=== PATIENT | female | born 2000 | race Caucasian/White ===

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

== ENCOUNTER → 2022-04-21 | Outpatient (CLI) | payer MEDICAID, SELFPAY ==
[2022-04-21 10:46] LABS: Absolute Lymphocyte Count 1.99 X10^3/uL (0.83-4.51); Absolute Neutrophil Count 10.1 X10^3/uL (2.0-7.7); Basophil# 0.04 X10^3/uL; Basophil% 0.3 % (0-1); Eosinophil# 0.07 X10^3/uL; Eosinophils% 0.5 % (0-5); Hematocrit 36.3 % (37-47); Hemoglobin 12.3 g/dL (12.0-15.0); Lymphocyte # 1.99 X10^3/ul (0.83-4.51); Lymphocyte % 15.2 % (19-41); Mean Corp Hgb Conc 33.9 g/dL (32-36); Mean Corpuscular Hgb 30.1 pg (27.0-32.0); Mean Corpuscular Volume 88.8 fL (81-99); Mean Platelet Vol. 11.2 fl (6.2-12.0); Monocyte# 0.72 X10^3/uL; Monocyte% 5.5 % (0-10); NRBC Flagged by Analyzer 0 % (0-5); Neutrophil % 77.1 % (47-70); Platelet Count 207 K/mm3 (150-450); RBC Distribution Width CV 13.3 % (11.6-14.6); RBC Distribution Width SD 43.3 fl (35.1-43.9); Red Blood Count 4.09 M/mm3 (4.2-5.4); White Blood Count 13.1 K/mm3 (4.4-11.0)
[2022-04-21 10:54] LABS: Glucose Challenge Gest 1H 50g 164 mg/dL (70-140)
== END | disposition home or self-care (01) ==
LOC: WOBLAB 08:58
PROVIDERS: Visit Provider Student in an Organized Health Care Education/Training Program
DX: Z34.83 Encounter for supervision of other normal pregnancy, third trimester (principal)
CPT/HCPCS: 36415; 82950; 85025; 86850

== ENCOUNTER → 2022-04-24 | Outpatient (CLI) | payer MEDICAID, SELFPAY ==
[2022-04-24 09:28] LABS: Glucose GTT-Gestation. Fasting 92 mg/dL (<105)
[2022-04-24 10:28] LABS: Glucose GTT-Gestational 1 Hr 147 mg/dL (<190)
[2022-04-24 12:22] LABS: Glucose GTT-Gestational 3 Hr 98 L (<145)
[2022-04-24 12:23] LABS: Glucose GTT-Gestational 2 Hr 152 mg/dL (<165)
== END | disposition home or self-care (01) ==
LOC: WOBLAB 08:38
PROVIDERS: Visit Provider Student in an Organized Health Care Education/Training Program
DX: O99.810 Abnormal glucose complicating pregnancy (principal); Z3A.00 Weeks of gestation of pregnancy not specified
CPT/HCPCS: 36415; 82951; 82952

== ENCOUNTER → 2022-06-16 | Outpatient (CLI) | payer MEDICAID, SELFPAY ==
[2022-06-16 13:19] LABS: Absolute Lymphocyte Count 3.15 X10^3/uL (0.83-4.51); Absolute Neutrophil Count 12.4 X10^3/uL (2.0-7.7); Basophil# 0.08 X10^3/uL; Basophil% 0.5 % (0-1); Eosinophil# 0.06 X10^3/uL; Eosinophils% 0.3 % (0-5); Hematocrit 36.2 % (37-47); Hemoglobin 12.3 g/dL (12.0-15.0); Lymphocyte # 3.15 X10^3/ul (0.83-4.51); Lymphocyte % 18.2 % (19-41); Mean Corpuscular Hgb 30.4 pg (27.0-32.0); Mean Corpuscular Volume 89.4 fL (81-99); Mean Platelet Vol. 11.1 fl (6.2-12.0); Monocyte# 1.16 X10^3/uL; Monocyte% 6.7 % (0-10); NRBC Flagged by Analyzer 0 % (0-5); Neutrophil # 12.41 X10^3/uL (2.7-7.7); Neutrophil % 71.7 % (47-70); Platelet Count 252 K/mm3 (150-450); RBC Distribution Width CV 13.5 % (11.6-14.6); RBC Distribution Width SD 44.5 fl (35.1-43.9); Red Blood Count 4.05 M/mm3 (4.2-5.4); White Blood Count 17.3 K/mm3 (4.4-11.0)
[2022-06-16 14:07] LABS: Syphilis Antibodies Non-reactive
== END | disposition home or self-care (01) ==
LOC: WOBLAB 11:52
PROVIDERS: Visit Provider Student in an Organized Health Care Education/Training Program
DX: Z34.83 Encounter for supervision of other normal pregnancy, third trimester (principal)
CPT/HCPCS: 36415; 85025; 86780; 87081

== ENCOUNTER 2022-07-13 06:57 | Inpatient (IN) | payer MEDICAID, SELFPAY ==
[2022-07-13] VITALS (38 sets, daily range): BP systolic 105–128; BP diastolic 55–81; PULSE 63–97; TEMP 36.2–36.8; O2SAT 91–99; BMI 29.2
--- NOTE | 2022-07-13 08:21 | PCM.HP.BLA ---
History and Physical Date of Admission: 07/13/22 Chief complaint: Induction of labor at term History present illness: 22-year-old G1, P0 at 40 weeks and 3 days with RUMA 07/10/2022 arrives for induction of labor at term. Denies headache, vision changes, chest pain, shortness of breath, nausea, right upper quadrant pain. Patient states good movement. is complicated by BMI 29, Rh- Obstetric history: G1: Current Past medical history: None Medications: vitamin Allergies: No known drug allergies Past surgical history: None Family history: Denies history DVT or PE Social history: Former smoker, alcohol use, drug use Review of systems: Besides above pertinent positive for review of systems was performed and found to be negative Physical exam: Vitals: Blood pressure 107/64 pulse 88 temperature 98.2 ?F General: Normal-appearing no acute distress HEENT: Normocephalic/atraumatic no cervical lymphadenopathy Cardiac/respiratory: No use accessory muscles, nonlabored breathing Abdomen: Soft, nontender, gravid Extremities: No peripheral edema normal peripheral pulses Psych: Normal affect and demeanor nonpressured speech Labs: Pending Assessment and plan: 22-year-old at 40 weeks and 3 days arrives for induction of labor at term Admit labor and delivery CEFM GBS negative Cytotec induction 25 mcg vaginally every 4 per protocol Routine orders Anesthesia to see
[2022-07-13 08:45] LABS: Absolute Neutrophil Count 12.4 X10^3/uL (2.0-7.7); Basophil# 0.07 X10^3/uL; Basophil% 0.4 % (0-1); Eosinophils% 0.6 % (0-5); Hematocrit 38.3 % (37-47); Hemoglobin 12.8 g/dL (12.0-15.0); Lymphocyte % 19.8 % (19-41); Mean Corp Hgb Conc 33.4 g/dL (32-36); Mean Corpuscular Hgb 29.3 pg (27.0-32.0); Mean Corpuscular Volume 87.6 fL (81-99); Mean Platelet Vol. 10.6 fl (6.2-12.0); Monocyte# 0.87 X10^3/uL; Monocyte% 5.1 % (0-10); NRBC Flagged by Analyzer 0 % (0-5); Neutrophil # 12.44 X10^3/uL (2.7-7.7); Neutrophil % 72.3 % (47-70); Platelet Count 267 K/mm3 (150-450); RBC Distribution Width CV 13.8 % (11.6-14.6); RBC Distribution Width SD 43.9 fl (35.1-43.9); Red Blood Count 4.37 M/mm3 (4.2-5.4); White Blood Count 17.2 K/mm3 (4.4-11.0)
[2022-07-13 09:40] LABS: Syphilis Antibodies Non-reactive
[2022-07-13] MEDS: miSOPROStol 25 MCG TABLET VAGINAL (09:43)
[2022-07-13] MEDS: 0.9% Saline Lock 10 ML Syringe IV (09:43)
[2022-07-13] MEDS: Lactated Ringers 1,000 ML 50 ML IV (14:05)
[2022-07-13] MEDS: Oxytocin 15 Units/NS 250ml 15 UNITS/250 ML IV.SOLN 2 UNITS IV (14:10)
--- NOTE | 2022-07-13 16:31 | PN.OBGYN_ITS ---
Subjective Subjective No complaints feels minor contractions Objective Data Objective Data Vital Signs: Vital Signs Temp Pulse BP Pulse Ox 97.2 F L 71 124/57 H 97 07/13/22 16:19 07/13/22 16:20 07/13/22 16:20 07/13/22 16:20 Weight: 150 lb Body Mass Index (BMI) 29.2 Intake & Output: Intake and Output for Last 24 Hours 07/11/22 07/12/22 07/13/22 23:59 23:59 23:59 Intake Total 2.03 / 2.03 Balance 2.03 / 2.03 Lab / Micro Data Result Diagrams: 07/13/22 08:30 Labs: Laboratory Results - last 24 hr 07/13/22 08:30: WBC 17.2 H, RBC 4.37, Hgb 12.8, Hct 38.3, MCV 87.6, MCH 29.3, MCHC 33.4, RDW Std Deviation 43.9, RDW Coeff of Tino 13.8, Plt Count 267, MPV 10.6, Immature Gran % (Auto) 1.800 H, Neut % (Auto) 72.3 H, Lymph % (Auto) 19.8, [place] % (Auto) 5.1, Eos % (Auto) 0.6, Baso % (Auto) 0.4, Absolute Neuts (auto) 12.4 H, Absolute Lymphs (auto) 3.40, Nucleated RBC % 0 07/13/22 08:30: Blood Type A NEGATIVE, Antibody Screen NEGATIVE 07/13/22 08:30: Syphilis Total Ab Non-reactive Physical Exam Const alert, oriented x3, no apparent distress, average body habitus, healthy appearing and well nourished HEENT normocephalic and moist oral mucous membranes Eyes PERRL Neck full ROM Resp normal respiratory effort and no retractions Extremity normal to inspection and full ROM Neuro moves all extremities and no focal motor deficits Psych mental status grossly normal, affect normal, speech normal and activity/motor b ehavior normal Assessment & Plan (1) : PLAN: Patient seen and examined. Mild discomfort with contractions. Called by nursing earlier today with contractions every 2 minutes and cervical dilation 2 cm. Switch to Pitocin. Educated patient on plan for induction and discussed possible AROM in the future. Patient states understanding
[2022-07-13] MEDS: LACTATED RINGERS 500 ML 999 ML IV (19:15)
[2022-07-13] MEDS: fentaNYL-bupivacaine (epidural) 100 ML BAG EPIDURAL (19:47)
[2022-07-13] MEDS: Ondansetron 4 MG/2 ML Vial IV (21:31)
[2022-07-14] VITALS (43 sets, daily range): BP systolic 99–138; BP diastolic 48–69; PULSE 61–115; RESP 16–18; TEMP 36.5–37.3; O2SAT 88–99
[2022-07-14] MEDS: fentaNYL-bupivacaine (epidural) 100 ML BAG EPIDURAL ×4 (00:01→13:59)
[2022-07-14] MEDS: Lactated Ringers 1,000 ML 200 ML IV ×3 (01:40→12:14)
--- NOTE | 2022-07-14 10:25 | PN.OBGYN_ITS ---
Subjective Subjective Patient comfortable with epidural, no complaints Objective Data Objective Data Vital Signs: Vital Signs Temp Pulse BP Pulse Ox 98.2 F 72 125/58 H 98 07/14/22 10:12 07/14/22 10:12 07/14/22 10:12 07/14/22 09:00 Weight: 150 lb Body Mass Index (BMI) 29.2 Intake & Output: Intake and Output for Last 24 Hours 07/12/22 07/13/22 07/14/22 23:59 23:59 23:59 Intake Total 880.20 / 880.20 1761.93 / 1761.93 Output Total 300 / 300 Balance 580.20 / 580.20 1761.93 / 1761.93 Lab / Micro Data Result Diagrams: 07/13/22 08:30 Physical Exam Const alert, oriented x3, no apparent distress, average body habitus, healthy appearing and well nourished HEENT normocephalic and moist oral mucous membranes Eyes PERRL Neck full ROM Resp normal respiratory effort, no retractions and no use of accessory muscles GI GI Narrative: Soft, nontender, gravid Narrative: Cervical exam: 5-6/70/-3. AROM thin meconium Psych mental status grossly normal, affect normal, speech normal and activity/motor behavior normal Assessment & Plan (1) : PLAN: Patient seen and examined now comfortable with epidural. Educated patient on AROM wrist benefits alternatives, patient states understanding wish to proceed. AROM thin meconium, educated patient on meconium and plan for delivery and internet marketing consultant, discussed risks of meconium aspiration. Patient and family states understanding all questions answered. We will continue to titrate Pitocin
[2022-07-14] MEDS: LACTATED RINGERS 500 ML 999 ML IV (11:13)
[2022-07-14] MEDS: Oxytocin 15 Units/NS 250ml 15 UNITS/250 ML IV.SOLN 20 UNITS IV (12:04)
[2022-07-14] MEDS: Methylergonovine 0.2 MG/ML Ampul IM (14:28)
[2022-07-14] MEDS: Ondansetron 4 MG/2 ML Vial IV (15:05)
--- NOTE | 2022-07-14 15:11 | OP.PCM_ITS ---
Maternal Data Information Final RUMA: 07/10/22 Vaginal Delivery Operative Information Date of Procedure: 07/14/22 Pre-Operative Diagnosis: March intrauterine at term Post-Operative Diagnosis: March intrauterine at term Surgery / Procedure Performed: Spontaneous Vaginal Delivery Type of Anesthesia: Epidural Estimated Blood Loss: 700cc Findings Description of Procedure: Spontaneous vaginal delivery of viable female. Nuchal cord x1, loose, delivered through. Baby to mom. Cord clamped and cut. Spontaneous delivery of placenta. Second-degree laceration and bilateral labial lacerations repaired in the usual fashion, hemostatic. Patient received Methergine IM x1. Uterus firm and lower uterine segment cleared of all clots. Chemical Etch Operator present at delivery for light meconium fluid. A Gender: Female (1 minute): 8 (5 minute): 9 Complication Complications: None
[2022-07-14] MEDS: Ibuprofen 600 MG Tablet PO (15:33)
[2022-07-14] MEDS: Oxytocin 15 Units/NS 250ml 15 UNITS/250 ML IV.SOLN 83 UNITS IV (15:43)
[2022-07-15] MEDS: Acetaminophen 500 MG Tablet 1000 MG PO ×2 (00:36→12:43)
[2022-07-15 04:48] VITALS: BP 110/53; PULSE 79; RESP 16; TEMP 36.7
[2022-07-15 05:14] LABS: Hematocrit 29.7 % (37-47); Mean Corp Hgb Conc 33.7 g/dL (32-36); Mean Corpuscular Hgb 29.7 pg (27.0-32.0); Mean Corpuscular Volume 88.1 fL (81-99); Mean Platelet Vol. 10.9 fl (6.2-12.0); Platelet Count 244 K/mm3 (150-450); RBC Distribution Width CV 13.5 % (11.6-14.6); RBC Distribution Width SD 43.5 fl (35.1-43.9); Red Blood Count 3.37 M/mm3 (4.2-5.4); White Blood Count 26.7 K/mm3 (4.4-11.0)
[2022-07-15] MEDS: Ibuprofen 600 MG Tablet PO (06:00)
[2022-07-15 09:00] VITALS: BP 123/64; PULSE 90; RESP 16; TEMP 36.6; O2SAT 98
[2022-07-15 09:16] VITALS: BP 123/64; PULSE 90
--- NOTE | 2022-07-15 10:11 | DS.PCM_ITS ---
Discharge Summary Date of Admission: 07/13/22 Date of Discharge: 07/15/22 Summary: Patient arrived on 07/13/2022 for induction of labor at term. Subsequently delivered on 07/14/2022 vaginally. Routine recovery. Discharged home on 07/15/2022 Meaningful Use Info Meaningful Use Diagnoses (Choose all that apply): None applicable Discharge Plan Admission Admit Date/Time: 07/13/22 06:57 Primary Reason for Your Visit: Induction of labor Attending Provider: Laina David Instructions Additional Instructions / Restrictions: Regular diet. Weightbearing as tolerated. Okay to shower. No intercourse for 4 to 6 weeks. Call if fevers, chills, chest pain, shortness of breath. Follow- up 4 to 6 weeks Discharge Orders/Prescriptions Prescriptions: No Action Prena1 True 30 mg iron- 1.4 mg-300 mg Combo Pack 1 pkg PO DAILY Disposition Disposition (needs filled in before D/C Order can be placed): Home, Self Care
--- NOTE | 2022-07-15 10:12 | PCM.PN.OB ---
Subjective Subjective No overnight complaints Objective Data Objective Data Vital Signs: Vital Signs Temp Pulse Resp BP Pulse Ox O2 Del Method 97.8 F 90 16 123/64 H 98 Room Air 07/15/22 09:00 07/15/22 09:16 07/15/22 09:00 07/15/22 09:16 07/15/22 09:00 07/15/22 09:00 Oxygen Delivery Method Room Air Weight: 150 lb Body Mass Index (BMI) 29.2 Intake & Output: Intake and Output for Last 24 Hours 07/13/22 07/14/22 07/15/22 23:59 23:59 23:59 Intake Total 880.20 / 880.20 4779.80 / 4779.80 Output Total 300 / 300 1300 / 1300 Balance 580.20 / 580.20 3479.80 / 3479.80 Lab / Micro Data Result Diagrams: 07/15/22 05:05 Labs: Laboratory Results - last 24 hr 07/14/22 19:25: Screen NEGATIVE, Baby's Blood Type A POSITIVE, Baby's JUANJO NEGATIVE 07/15/22 05:05: WBC 26.7 H, RBC 3.37 L, Hgb 10.0 L, Hct 29.7 L, MCV 88.1, MCH 29.7, MCHC 33.7, RDW Std Deviation 43.5, RDW Coeff of Tino 13.5, Plt Count 244, MPV 10.9 Physical Exam Const alert, oriented x3, no apparent distress, average body habitus, healthy appearing and well nourished HEENT normocephalic and moist oral mucous membranes Eyes PERRL Neck full ROM Resp normal respiratory effort, no retractions and no use of accessory muscles GI GI Narrative: Soft, nontender, uterus firm and below umbilicus Extremity normal to inspection and full ROM Neuro moves all extremities and no focal motor deficits Psych mental status grossly normal, affect normal, speech normal and activity/motor behavior normal Assessment & Plan (1) Vaginal delivery: PLAN: day 1. Formula feeding. Pain well controlled. Okay to discharge home today if okay with section hand helper
--- NOTE | 2022-07-15 10:45 | CASEMGMT ---
Social Work Assessment Labor and Delivery Unit Patient Address: [address] [place], [place] Phone number: [phone] Date of Referral: 07/13/22 Time of Referral:? 8:46 Referred By: Frankie Date of Intervention: 07/15/22? Time of Intervention:? 10:45 Reason for Referral: family Hx AOD ? History obtained from: medical records, mother of baby (MOB) and father of baby (FOB) Household composition: MOB reports she lives with FOB in FOB?s mother?s home. FOB?s brother also lives in that house. MOB reports they plan to get a place with FOB?s mother once FOB?s brother moves out. Patient's parent/guardian status: MOB reports she has been with FOB for 3 ? years. FOHaim, Joshua 20 years old, is actively involved with NB, and has no other children. FOB reports anxiety diagnosis and is currently prescribed Effexor. No concerns with DV or AOD for FOB. ? Medical History: MOB was engaged in care with Shante David starting at 8 weeks. MOB reports this is her first that resulted in the of their NB, Zulma. Zulma was born 07/14/22, weighing 3255g, and Apgars 8/9 and a plan to bottle feed. MOB report NB?s jury consultant will be MD Long and plans to discuss control options with her OB at her two week follow up. ? Educational Status: MOB reports highest level of education is 11th grade, no learning concerns. ? Financial Status: Patient reports she is employed at [employer] and will have 6 weeks of maternity and 2 weeks for baby bonding that can be used whenever. ARNULFO is currently unemployed but actively looking. Infant Supplies: MOB reports having all the supplies needed including a car seat, crib in their bedroom, clothes and diapers/wipes. Childcare/Caregiver(s): MOB reports she will be home with NB for 6 weeks with 2 more weeks available when needed. MOB explained they have support from family to care for NB as needed. Transportation: MOB reports FOB?s mother assists with transportation as needed. ??? Programs/Agencies Involved: ??MOB reports no current community resources. SW discussed WIC, Help Me Grow and JFS programs, MOB interested in referrals and application. ?? Children Services/Legal Issues: None reported??? Behavioral Health Issues: ??Mental Health History:? MOB reports history of anxiety when she was kid but has managed symptoms and not currently receiving MH treatment. MOB reports her uncle struggled with alcohol use. MOB reports smoking prior to and plans to reframe from using. ?? Family/Social Stressors:? No stressors identified. Support Systems: MOB reports she is supported by FOB, her sister and Aunt as well as FOB?s mother and grandmother. ? Depression/Shaken Baby/Safe Sleeping: SW educated MOB on depression/anxiety as well as shaken baby and safe sleep. MOB report NB will be sleeping in a basinet beside their bed but has a crib in his nursey to transition to when he is older. SW provided MOB with educational information as well as resources on the topics. MOB report understanding and voice no other needs. SW encouraged MOB to contact OB or PCP if she is concerned with symptoms. ??? ASSESSMENT:? SW met with MOB and introduced herself and role as [employer]. MOB in agreement to speak with SW with FOB present. SW utilized open and close ended questions to gather information needed for an assessment. MOB report having supplies needed, identified supports and reports no current community agency involvement but open to referrals for WIC, Help Me Grow and application for JFS. MOB report history of anxiety as a kid and reports symptoms have been manageable for years. MOB reports previous nicotine use with a plan to reframe from use. SW assisted MOB with safe plan in the event she does smoke. SW educated patient on second hand smoke and encouraged MOB to wash hands and change clothes to decrease exposure. MOB reports understanding. SW educated MOB on safe sleep, shaken baby and PPD/A. SW also provided local resources for [facility]. JARRET updated RN of resources provided, no concerns. PLAN:? ?Referral for WIC and Help Me Grow, provided application for JFS services. Dora Minor MSW, SUZANNE
[2022-07-15 12:45] VITALS: BP 113/55; PULSE 92; RESP 18; TEMP 36.3; O2SAT 99
[2022-07-15 12:47] VITALS: BP 113/55; PULSE 92
[2022-07-15] MEDS: Senna/Docusate Sodium 1 Tablet PO (15:22)
== END 2022-07-15 16:15 | disposition home or self-care (01) | DRG 560 ==
PROVIDERS: Admitting Provider Student in an Organized Health Care Education/Training Program; Referring Provider Obstetrics & Gynecology; Visit Provider Student in an Organized Health Care Education/Training Program
DX: O48.0 Post-term pregnancy (principal); Z37.0 Single live birth; O69.81X0 Labor and delivery complicated by cord around neck, without compression, not applicable or unspecified; O70.1 Second degree perineal laceration during delivery; Z3A.40 40 weeks gestation of pregnancy; Z87.891 Personal history of nicotine dependence; O77.0 Labor and delivery complicated by meconium in amniotic fluid
CPT/HCPCS: 36415; 59025; 59050; 85025; 85027; 85461; 86780; 86850; 86900; 86901; 99221; J7120; A4216; G0378; J2405; J2790